=== PATIENT | female | born 1995 | race Caucasian/White ===

== ENCOUNTER 2016-12-04 16:24 | Emergency (ER) | payer SELFPAY ==
[~2016-12-04] VITALS: Ht 152.4 cm; Wt 47.6 kg
== END 2016-12-04 17:36 | disposition home or self-care (01) ==
LOC: CED 16:24 → CFTX 16:24
DX: K04.7 Periapical abscess without sinus (principal); F17.210 Nicotine dependence, cigarettes, uncomplicated; Z88.0 Allergy status to penicillin; Z98.890 Other specified postprocedural states
CPT/HCPCS: 99282